=== PATIENT | male | born 1960 | race Two or more races ===

== ENCOUNTER 2020-11-09 06:48 | Emergency (ER) | payer OTHER, MEDICARE, MEDICAID ==
[~2020-11-09] VITALS: Ht 167.6 cm; Wt 77.0 kg
[~2020-11-09 06:48] MED LIST: AMLO10TA4 PO; LEVO500T8 PO; LISI20TA18 PO; METF500T16 PO; PRED10TA16 PO; SITA50TA PO
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
[2020-11-09] MEDS ORDERED: IOHEXOL 300 MG/ML 100ML VIAL. IV ONE (07:30)
[2020-11-09] MEDS ORDERED: CONTRAST GIVEN. MC PRN (07:30)
[2020-11-09 07:34] LABS: BASO % 1 % (0-3); EOS # 0.1 x10^3/uL (0.0-0.7); EOS % 2 % (0-3); HEMATOCRIT 41.3 % (39.0-53.0); HEMOGLOBIN 14.7 g/dL (13.0-17.5); LYMPH % 20 % (24-48); MEAN CORPUSCULAR HEMOGLOBIN 31 pg (25-35); MEAN CORPUSCULAR HGB CONC 36 g/dL (31-37); MEAN CORPUSCULAR VOLUME 87 fL (79-100); MONO # 0.4 x10^3/uL (0.0-1.1); MONO % 7 % (0-9); NEUT # 3.7 x10^3/uL (1.8-7.7); NEUT % 71 % (31-73); PLATELET COUNT 171 x10^3/uL (140-400); RED BLOOD COUNT 4.73 x10^6/uL (4.30-5.70); RED CELL DISTRIBUTION WIDTH 13.5 % (11.5-14.5); WHITE BLOOD COUNT 5.2 x10^3/uL (4.0-11.0)
[2020-11-09 07:52] LABS: CALCIUM 8.5 mg/dL (8.5-10.1); CREATININE 1.7 mg/dL (0.7-1.3); GFR 41.3; POTASSIUM 4.9 mmol/L (3.5-5.1)
[2020-11-09 07:55] LABS: ALBUMIN 3.5 g/dL (3.4-5.0); ALBUMIN/GLOBULIN RATIO 1.3 (1.0-1.7); TOTAL BILIRUBIN 0.7 mg/dL (0.2-1.0); TOTAL PROTEIN 6.1 g/dL (6.4-8.2)
[2020-11-09] MEDS ORDERED: IV NORMAL SALINE 1000ML BAG 1,000 ML IV ONE (08:00)
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
[2020-11-09] MEDS ORDERED: LIDOCAINE (700MG/PATCH) PATCH. TD SCH (09:00)
[2020-11-09 09:08] LABS: BARBITURATES NEG (NEG); BENZODIAZEPINES NEG (NEG); CANNABINOIDS NEG (NEG); COCAINE POS (NEG); METHADONE NEG (NEG); OPIATES NEG (NEG); PHENCYCLIDINE NEG (NEG)
[2020-11-09 09:16] LABS: AMPHETAMINE/METHAMPHETAMINE NEG (NEG)
[2020-11-09] MEDS ORDERED: HYDROcodone/APAP 5/325MG 1 TAB TABLET PO ONE (09:30)
[2020-11-09] MEDS ORDERED: LIDO1ADH78 TP (11:07)
[2020-11-09] MEDS ORDERED: HYDR-2761 PO (11:07)
[2020-11-09 11:09] VITALS: BP 162/72
[2020-11-09] MEDS ORDERED: PATCH REMOVAL. MC SCH (21:00)
== END 2020-11-09 11:25 | disposition home or self-care (01) ==
LOC: ER 06:48
DX: M43.17 Spondylolisthesis, lumbosacral region (principal); N28.9 Disorder of kidney and ureter, unspecified; R91.1 Solitary pulmonary nodule; R51.9 Headache, unspecified; M54.2 Cervicalgia; E11.9 Type 2 diabetes mellitus without complications; I10 Essential (primary) hypertension; F17.200 Nicotine dependence, unspecified, uncomplicated
CPT/HCPCS: 36415; 70450; 71260; 72125; 74177; 80053; 80307; 83690; 84484; 85025; 96360; 96361; 99285; G0480; J7030; Q9967; 93005